=== PATIENT | female | born 1995 | race Caucasian/White ===

== ENCOUNTER 2017-08-08 10:09 | Emergency (ER) | payer OTHER ==
[~2017-08-08] VITALS: Ht 154.9 cm; Wt 43.3 kg
[2017-08-08 10:18] VITALS: BP 112/67
--- NOTE | 2017-08-08 10:34 | NUR ---
21 YO F BIB SELF W/ C/O SORE THROAT, COUGH, CLOG BL EARS X 2 DAYS. REPORTS SWALLOWING IS EXCRUTIATING. DENIES FEVER AT THIS TIME. DENIES N/V/D AT THIS TIME. AAOX4. GCS 15. CMS INTACT. RR EVEN AND UNLABORED. LUNGS BILATERALLY CLEAR. ABD SOFT, NON-TENDER. ER MD WEBER NOTIFIED. PT NEEDS MET. SAFETY PRECAUTIONS IN PLACE. WILL CONTINUE TO MONITOR.
--- NOTE | 2017-08-08 10:45 | NUR ---
STREP CULTURE/SWABS COLLECTED AT THIS TIME. WILL CONTINUE TO MONITOR PT. SAFETY PRECAUTIONS IN PLACE.
[2017-08-08 11:40] VITALS: BP 115/58
--- NOTE | 2017-08-08 11:41 | NUR ---
Patient discharged with v/s stable. Written and verbal after care instructions given and explained. Patient alert, oriented and verbalized understanding of instructions. Ambulatory with steady gait. All questions addressed prior to discharge. ID band removed. Patient advised to follow up with PMD. Rx of Amoxicillin and Flonase given. Patient educated on indication of medication including possible reaction and side effects. Opportunity to ask questions provided and answered.
== END 2017-08-08 11:41 | disposition home or self-care (01) ==
LOC: MED 10:09
DX: J02.9 Acute pharyngitis, unspecified (principal); Z88.8 Allergy status to other drugs, medicaments and biological substances
CPT/HCPCS: 87081; 99284

== ENCOUNTER 2017-11-19 08:32 | Emergency (ER) | payer OTHER ==
[~2017-11-19] VITALS: Ht 154.9 cm; Wt 44.5 kg
[2017-11-19 08:35] VITALS: BP 174/87
[2017-11-19 10:38] VITALS: BP 124/76
== END 2017-11-19 10:37 | disposition home or self-care (01) ==
LOC: MED 08:32
DX: S16.1XXA Strain of muscle, fascia and tendon at neck level, initial encounter (principal); S20.221A Contusion of right back wall of thorax, initial encounter; S60.221A Contusion of right hand, initial encounter; Y04.1XXA Assault by human bite, initial encounter; Y93.89 Activity, other specified; Y92.89 Other specified places as the place of occurrence of the external cause; Y99.8 Other external cause status
CPT/HCPCS: 71045; 72040; 73110; 73130; 81002; 81025; 99284

== ENCOUNTER 2020-08-05 05:02 | Emergency (ER) | payer OTHER ==
[~2020-08-05] VITALS: Ht 154.9 cm; Wt 49.9 kg
[2020-08-05 05:08] VITALS: BP 120/77
--- NOTE | 2020-08-05 05:20 | NUR ---
24 Y/O FEMALE BIB SELF FOR FEVER SINCE YESTERDAY; +BODY ACHES; DENIES N/V/D; +HEADACHE; +CHILLS; PAIN IS A 3/10 GENERALIZED BODY PAIN; LAST TOOK ACETAMINOPHEN AT 0300. PMH:NONE ALLERGY: LITHIUM MEDS: NONE
--- NOTE | 2020-08-05 05:30 | NUR ---
COLLECTED MANUEL AND INFLUENZA SWABS AND SENT TO LAB. HANDED TO CPT SABRA
[2020-08-05 05:44] LABS: BILIRUBIN,URINE 1+ (NEGATIVE); COLOR,URINE YELLOW (YELLOW); LEUKOCYTE ESTERASE ,URINE TRACE (NEGATIVE); NITRITE, URINE NEGATIVE (NEGATIVE); UGLUCOSE NEGATIVE (NEGATIVE)
[2020-08-05 05:58] LABS: WBC,URINE 0-5 /HPF (0-5)
[2020-08-05 06:00] LABS: APPEARANCE,URINE SLIGHTLY HAZY (CLEAR); BLOOD, URINE 1+ (NEGATIVE); RBC,URINE 0-5 /HPF (0-5)
[2020-08-05] MEDS ORDERED: CEPH-588 PO (06:13)
[2020-08-05 06:24] VITALS: BP 120/77
== END 2020-08-05 06:25 | disposition home or self-care (01) ==
LOC: MED 05:02
DX: N39.0 Urinary tract infection, site not specified (principal); Z20.822 Contact with and (suspected) exposure to COVID-19
CPT/HCPCS: 81001; 87086; 87804; 99283